=== PATIENT | female | born 1970 | race Caucasian/White ===

== ENCOUNTER 2022-01-05 07:52 | Emergency (ER) | payer BC ==
[2022-01-05] VITALS (11 sets, daily range): BP systolic 116–142; BP diastolic 76–97
[~2022-01-05] VITALS: Ht 170.2 cm; Wt 80.9 kg
[~2022-01-05 07:52] MED LIST: ACETIC ACID2 % AD; ATIVAN0.5 MG PO; ATIVAN1 M1 PO; AUGMENTIN875TAB OR; AUGMENTIN875TAB PO; B12 LIQUID PO; BIOTIN1000 MCG PO; D3400 UNIT OR; FLONASE NASAL50 MCG; MINIVELLE EX; MINIVELLE TD; MOTRIN800 MG PO; MULTIVITAMI3 PO; NAPROSYN500 MG PO; NASONEX50 MCG/AC; PANTOPRAZOLE SO40 MG PO; ROPINIROLE2 MG OR; SINGULAIR10 MG PO; TAM75CAP PO; VITAMIN B-122500 MCG SL; VITAMIN D31000 UNI1 PO; XANAX0.25 MG PO; ZYRTEC ALLERGY10 MG PO; ZYRTEC-D ALG PO; ZYRTEC10 M5 PO; [UNRECOGNIZED DRUG - CODE] IM; [UNRECOGNIZED DRUG - OTHER]
[2022-01-05 08:15] LABS: HEMATOCRIT 40.8 % (37.0-47.0); HEMOGLOBIN 13.3 g/dl (12.0-16.0); IMMATURE GRANULOCYTES 0.1 % (0.0-5.0); MEAN CELL VOLUME 94.7 fL CALC (80.0-100.0); MEAN CORPUSCULAR HGB 30.9 pG CALC (26.0-32.0); MEAN CORPUSCULAR HGB CONC 32.6 g/dL CAL (32.0-36.0); NEUT# 5.29 thou/uL (2.00-7.15); RED BLOOD COUNT 4.31 mill/uL (4.20-5.60); RED CELL DISTRI WIDTH 12.5 % (11.5-15.5)
[2022-01-05 08:30] LABS: ALBUMIN 4.1 g/dL (3.2-5.0); ALKALINE PHOSPHATASE 48 u/l (38-126); ANION GAP 13 (6-22 (CALC)); BUN 16 mg/dL (7-17); BUN/CREATININE RATIO 21 (12-20 (CALC)); CARBON DIOXIDE 22 mmol/l (22-30); CHLORIDE 108 mmol/l (95-108); CREATININE 0.7 mg/dL (0.5-1.0); GFR FOR AFR.AMER. > 60 ML/MIN (>=60 (CALC)); GFR OTHER RACES > 60 ML/MIN (>=60 (CALC)); POTASSIUM 3.9 mmol/l (3.5-5.1); SGOT/AST 17 u/l (14-36); SODIUM 139 mmol/l (137-146); TOTAL PROTEIN 7.2 g/dL (6.3-8.2)
[2022-01-05 08:35] LABS: BILIRUBIN, TOTAL 0.3 mg/dL (0.0-1.4)
== END 2022-01-05 13:19 | disposition home or self-care (01) | DRG 313 ==
LOC: ED 07:52
PROVIDERS: Family Medicine
DX: R07.9 Chest pain, unspecified (principal); I10 Essential (primary) hypertension; E78.5 Hyperlipidemia, unspecified; K21.9 Gastro-esophageal reflux disease without esophagitis

== ENCOUNTER 2022-02-26 02:29 | Emergency (ER) | payer BC ==
[~2022-02-26] VITALS: Ht 170.2 cm; Wt 76.0 kg
[2022-02-26 02:38] VITALS: BP 141/79
[2022-02-26 02:45] VITALS: BP 115/82
[2022-02-26] MEDS ORDERED: NITROSTAT0.4 MG SL (02:49)
[2022-02-26] MEDS ORDERED: ELIQUIS STARTER5 MG PO (02:50)
[2022-02-26] MEDS ORDERED: ASPIRIN81 MG PO (02:51)
[2022-02-26] MEDS ORDERED: CRESTOR5 MG PO (02:52)
[2022-02-26] MEDS ORDERED: METOPROLOL SUCC50 MG PO (02:53)
[2022-02-26 03:00] VITALS: BP 110/70
== END 2022-02-26 03:07 | disposition home or self-care (01) | DRG 558 ==
LOC: ED 02:29
DX: M76.892 Other specified enthesopathies of left lower limb, excluding foot (principal); E78.5 Hyperlipidemia, unspecified; Z86.711 Personal history of pulmonary embolism

== ENCOUNTER 2022-03-30 18:52 | Observation (INO) | payer BC ==
[~2022-03-30] VITALS: Ht 170.2 cm; Wt 71.8 kg
[2022-03-30] VITALS (15 sets, daily range): BP systolic 105–126; BP diastolic 69–80
[~2022-03-30 18:52] MED LIST changes: +ASPIRIN81 MG PO; +CRESTOR5 MG PO; +ELIQUIS STARTER5 MG PO; +METOPROLOL SUCC50 MG PO; +NITROSTAT0.4 MG SL
[2022-03-30 19:23] LABS: HEMATOCRIT 36.9 % (37.0-47.0); HEMOGLOBIN 12.5 g/dl (12.0-16.0); IMMATURE GRANULOCYTES 0.2 % (0.0-5.0); MEAN CELL VOLUME 89.8 fL CALC (80.0-100.0); MEAN CORPUSCULAR HGB 30.4 pG CALC (26.0-32.0); MEAN CORPUSCULAR HGB CONC 33.9 g/dL CAL (32.0-36.0); NEUT# 3.71 thou/uL (2.00-7.15); RED BLOOD COUNT 4.11 mill/uL (4.20-5.60); RED CELL DISTRI WIDTH 12.9 % (11.5-15.5)
[2022-03-30 19:36] LABS: ALBUMIN 4.2 g/dL (3.2-5.0); ALKALINE PHOSPHATASE 46 u/l (38-126); ANION GAP 14 (6-22 (CALC)); BUN 7 mg/dL (7-17); BUN/CREATININE RATIO 13 (12-20 (CALC)); CARBON DIOXIDE 23 mmol/l (22-30); CHLORIDE 108 mmol/l (95-108); CREATININE 0.5 mg/dL (0.5-1.0); GFR FOR AFR.AMER. > 60 ML/MIN (>=60 (CALC)); GFR OTHER RACES > 60 ML/MIN (>=60 (CALC)); POTASSIUM 3.7 mmol/l (3.5-5.1); SGOT/AST 21 u/l (14-36); SODIUM 142 mmol/l (137-146); TOTAL PROTEIN 7.5 g/dL (6.3-8.2)
[2022-03-30 19:41] LABS: BILIRUBIN, TOTAL 0.6 mg/dL (0.0-1.4)
[2022-03-30 19:48] LABS: MYOGLOBIN 16 ng/mL (0 - 62)
[2022-03-30] MEDS ORDERED: ZOLOFT50 MG PO (22:31)
[2022-03-30] MEDS ORDERED: TOPROL XL25 MG PO (22:41)
[2022-03-31 03:41] VITALS: BP 96/62
[2022-03-31 04:17] LABS: HEMATOCRIT 34.2 % (37.0-47.0); HEMOGLOBIN 11.5 g/dl (12.0-16.0); IMMATURE GRANULOCYTES 0.7 % (0.0-5.0); MEAN CELL VOLUME 91.9 fL CALC (80.0-100.0); MEAN CORPUSCULAR HGB 30.9 pG CALC (26.0-32.0); MEAN CORPUSCULAR HGB CONC 33.6 g/dL CAL (32.0-36.0); NEUT# 2.96 thou/uL (2.00-7.15); RED BLOOD COUNT 3.72 mill/uL (4.20-5.60)
[2022-03-31 04:23] LABS: ALBUMIN 3.6 g/dL (3.2-5.0); ALKALINE PHOSPHATASE 40 u/l (38-126); ANION GAP 11 (6-22 (CALC)); BILIRUBIN, TOTAL 0.7 mg/dL (0.0-1.4); BUN 6 mg/dL (7-17); BUN/CREATININE RATIO 11 (12-20 (CALC)); CARBON DIOXIDE 24 mmol/l (22-30); CHLORIDE 111 mmol/l (95-108); CREATININE 0.6 mg/dL (0.5-1.0); GFR FOR AFR.AMER. > 60 ML/MIN (>=60 (CALC)); GFR OTHER RACES > 60 ML/MIN (>=60 (CALC)); POTASSIUM 3.9 mmol/l (3.5-5.1); SGOT/AST 17 u/l (14-36); SODIUM 142 mmol/l (137-146); TOTAL PROTEIN 6.2 g/dL (6.3-8.2)
[2022-03-31 07:00] VITALS: BP 104/68
[2022-03-31 08:37] VITALS: BP 113/67
[2022-03-31 10:49] VITALS: BP 104/67
[2022-03-31 11:08] VITALS: BP 104/67
[2022-03-31] MEDS ORDERED: LIDOCAINE PAIN RE4 % TD ×2 (11:35→14:37)
[2022-03-31 14:47] VITALS: BP 108/68
== END 2022-03-31 13:34 | disposition home or self-care (01) | DRG 313 ==
LOC: ED 18:52 → ED-I 21:35 → ED 21:40 → MS2 21:41
PROVIDERS: Emergency Medicine; Nurse Practitioner; ADMIT Internal Medicine; ATTEND Internal Medicine
DX: R07.89 Other chest pain (principal); M62.838 Other muscle spasm; F41.9 Anxiety disorder, unspecified; I25.10 Atherosclerotic heart disease of native coronary artery without angina pectoris; I10 Essential (primary) hypertension; E78.5 Hyperlipidemia, unspecified; Z86.711 Personal history of pulmonary embolism; Z79.01 Long term (current) use of anticoagulants; Z20.822 Contact with and (suspected) exposure to COVID-19
CPT/HCPCS: G0378; Q9967

== ENCOUNTER 2022-05-04 17:59 | Observation (INO) | payer BC ==
[~2022-05-04] VITALS: Ht 170.2 cm; Wt 65.9 kg
[2022-05-04] VITALS (10 sets, daily range): BP systolic 112–129; BP diastolic 68–86
[~2022-05-04 17:59] MED LIST changes: +LIDOCAINE PAIN RE4 % TD; +TOPROL XL25 MG PO; +ZOLOFT50 MG PO
--- NOTE | 2022-05-04 18:02 | NUR ---
PT TO ROOM VIA WC; DR GAINES AT BEDSIDE FOR EVALUATION
[2022-05-04 18:20] LABS: HEMATOCRIT 38.4 % (37.0-47.0); HEMOGLOBIN 12.8 g/dl (12.0-16.0); IMMATURE GRANULOCYTES 0.1 % (0.0-5.0); MEAN CORPUSCULAR HGB CONC 33.3 g/dL CAL (32.0-36.0); NEUT# 4.61 thou/uL (2.00-7.15); RED BLOOD COUNT 4.13 mill/uL (4.20-5.60); RED CELL DISTRI WIDTH 13.1 % (11.5-15.5)
[2022-05-04 18:37] LABS: ALBUMIN 4.7 g/dL (3.2-5.0); ALKALINE PHOSPHATASE 50 u/l (38-126); ANION GAP 16 (6-22 (CALC)); BILIRUBIN, TOTAL 0.7 mg/dL (0.0-1.4); BUN 9 mg/dL (7-17); BUN/CREATININE RATIO 16 (12-20 (CALC)); CARBON DIOXIDE 21 mmol/l (22-30); CHLORIDE 109 mmol/l (95-108); CREATININE 0.6 mg/dL (0.5-1.0); GFR FOR AFR.AMER. > 60 ML/MIN (>=60 (CALC)); GFR OTHER RACES > 60 ML/MIN (>=60 (CALC)); SGOT/AST 17 u/l (14-36); SODIUM 142 mmol/l (137-146); TOTAL PROTEIN 7.7 g/dL (6.3-8.2)
[2022-05-04 18:38] LABS: INTERNATIONAL NORMALIZED RATIO 1.1 RATIO (0.7-1.3); PROTHROMBIN TIME 10.5 SECONDS (9.0-12.5)
--- NOTE | 2022-05-04 20:35 | NUR ---
PT TRANSPORTED TO CT
[2022-05-04 21:08] LABS: URINE BILIRUBIN - DIPSTICK NEGATIVE (NEGATIVE); URINE BLOOD DIPSTICK NEGATIVE (NEGATIVE); URINE COLOR YELLOW; URINE GLUCOSE - DIPSTICK NEGATIVE (NEGATIVE); URINE KETONE 40 mg/dL (NEGATIVE); URINE LEUK ESTERASE NEGATIVE (NEGATIVE); URINE NITRITE - DIPSTICK NEGATIVE (Negative); URINE PROTEIN - DIPSTICK NEGATIVE (NEG-TRACE); URINE UROBILINOGEN - DIPSTICK 0.2 E.U./dL (0.2)
[2022-05-04] MEDS ORDERED: CARAFATE1 GM PO (21:14)
[2022-05-04] MEDS ORDERED: FLEXERIL5 M1 PO (21:15)
[2022-05-04] MEDS ORDERED: ZOFRAN4 MG/TAB PO (21:15)
[2022-05-04] MEDS ORDERED: NIFEDIPINE60 MG PO (21:15)
[2022-05-04] MEDS ORDERED: ATORVASTATIN CA80 MG PO (21:16)
--- NOTE | 2022-05-04 22:02 | NUR ---
PT ADMITTED TO RM 263; REPORT HANDED OFF TO RM MORENO
--- NOTE | 2022-05-05 02:11 | NUR ---
PATIENT RECEIVED FROM ER INTO ROOM 263. AWAKE, ALERT, AND ORIENTED X 4. REPORTS ANXIETY AND MUCH STRESS AT HOME. ATIVAN INCLUDED IN 2100 MEDS ORDERED. PATIENT ORIENTED TO ROOM AND USE OF CALL LIGHT FOR ASSIST AND PLACED WITHIN REACH.
[2022-05-05 03:45] VITALS: BP 114/71
[2022-05-05 05:32] LABS: CHOLESTEROL HDL RATIO 2.7 (<4.4 (CALC))
[2022-05-05 06:28] LABS: ANION GAP 14 (6-22 (CALC)); BUN 7 mg/dL (7-17); BUN/CREATININE RATIO 13 (12-20 (CALC)); CARBON DIOXIDE 20 mmol/l (22-30); CHLORIDE 111 mmol/l (95-108); CREATININE 0.6 mg/dL (0.5-1.0); GFR FOR AFR.AMER. > 60 ML/MIN (>=60 (CALC)); GFR OTHER RACES > 60 ML/MIN (>=60 (CALC)); POTASSIUM 3.6 mmol/l (3.5-5.1); SODIUM 141 mmol/l (137-146)
== END 2022-05-05 15:39 | disposition home or self-care (01) | DRG 884 ==
LOC: ED 17:59 → ED-I 20:15 → ED 20:29 → MS2 20:29
PROVIDERS: Family Medicine; Nurse Practitioner; ADMIT Internal Medicine; ATTEND Internal Medicine
DX: F06.4 Anxiety disorder due to known physiological condition (principal); R25.3 Fasciculation; I10 Essential (primary) hypertension; I25.10 Atherosclerotic heart disease of native coronary artery without angina pectoris; E78.5 Hyperlipidemia, unspecified; K76.0 Fatty (change of) liver, not elsewhere classified; K44.9 Diaphragmatic hernia without obstruction or gangrene; Z86.711 Personal history of pulmonary embolism; Z77.120 Contact with and (suspected) exposure to mold (toxic); Z79.01 Long term (current) use of anticoagulants; Z20.822 Contact with and (suspected) exposure to COVID-19
CPT/HCPCS: G0378; Q3014; Q9967

== ENCOUNTER 2022-05-19 16:12 | Emergency (ER) | payer BC ==
[2022-05-19] VITALS (19 sets, daily range): BP systolic 110–145; BP diastolic 68–101
[~2022-05-19] VITALS: Ht 170.2 cm; Wt 70.9 kg
[~2022-05-19 16:12] MED LIST changes: +ATORVASTATIN CA80 MG PO; +CARAFATE1 GM PO; +FLEXERIL5 M1 PO; +NIFEDIPINE60 MG PO; +ZOFRAN4 MG/TAB PO
[2022-05-19 16:39] LABS: HEMATOCRIT 39.9 % (37.0-47.0); HEMOGLOBIN 13.1 g/dl (12.0-16.0); IMMATURE GRANULOCYTES 0.2 % (0.0-5.0); MEAN CORPUSCULAR HGB 30.5 pG CALC (26.0-32.0); MEAN CORPUSCULAR HGB CONC 32.8 g/dL CAL (32.0-36.0); NEUT# 8.03 thou/uL (2.00-7.15); RED BLOOD COUNT 4.29 mill/uL (4.20-5.60)
[2022-05-19 16:50] LABS: ALBUMIN 4.4 g/dL (3.2-5.0); ALKALINE PHOSPHATASE 51 u/l (38-126); ANION GAP 15 (6-22 (CALC)); BILIRUBIN, TOTAL 0.6 mg/dL (0.0-1.4); BUN 10 mg/dL (7-17); BUN/CREATININE RATIO 15 (12-20 (CALC)); CARBON DIOXIDE 21 mmol/l (22-30); CHLORIDE 108 mmol/l (95-108); CREATININE 0.6 mg/dL (0.5-1.0); GFR FOR AFR.AMER. > 60 ML/MIN (>=60 (CALC)); GFR OTHER RACES > 60 ML/MIN (>=60 (CALC)); POTASSIUM 3.7 mmol/l (3.5-5.1); SGOT/AST 17 u/l (14-36); SODIUM 140 mmol/l (137-146); TOTAL PROTEIN 7.4 g/dL (6.3-8.2)
[2022-05-19 19:11] LABS: INTERNATIONAL NORMALIZED RATIO 1.1 RATIO (0.7-1.3)
[2022-05-19] MEDS ORDERED: XANAX0.25 MG PO (20:03)
== END 2022-05-19 20:48 | disposition home or self-care (01) | DRG 310 ==
LOC: ED 16:12
PROVIDERS: Family Medicine; Nurse Practitioner
DX: R00.2 Palpitations (principal); F41.9 Anxiety disorder, unspecified

== ENCOUNTER 2022-06-02 15:28 | Emergency (ER) | payer BC ==
[2022-06-02] VITALS (19 sets, daily range): BP systolic 99–127; BP diastolic 67–85
[~2022-06-02] VITALS: Ht 170.2 cm; Wt 70.0 kg
[2022-06-02 15:56] LABS: HEMATOCRIT 40.1 % (37.0-47.0); IMMATURE GRANULOCYTES 0.3 % (0.0-5.0); MEAN CELL VOLUME 92.4 fL CALC (80.0-100.0); MEAN CORPUSCULAR HGB CONC 32.4 g/dL CAL (32.0-36.0); NEUT# 2.4 thou/uL (2.00-7.15); RED BLOOD COUNT 4.34 mill/uL (4.20-5.60)
[2022-06-02 16:11] LABS: ALBUMIN 4.3 g/dL (3.2-5.0); ALKALINE PHOSPHATASE 45 u/l (38-126); ANION GAP 12 (6-22 (CALC)); BILIRUBIN, TOTAL 0.8 mg/dL (0.0-1.4); BUN 6 mg/dL (7-17); BUN/CREATININE RATIO 10 (12-20 (CALC)); CARBON DIOXIDE 25 mmol/l (22-30); CHLORIDE 105 mmol/l (95-108); CREATININE 0.7 mg/dL (0.5-1.0); GFR FOR AFR.AMER. > 60 ML/MIN (>=60 (CALC)); GFR OTHER RACES > 60 ML/MIN (>=60 (CALC)); POTASSIUM 3.9 mmol/l (3.5-5.1); SGOT/AST 18 u/l (14-36); SODIUM 137 mmol/l (137-146); TOTAL PROTEIN 7.2 g/dL (6.3-8.2)
== END 2022-06-02 20:11 | disposition home or self-care (01) | DRG 313 ==
LOC: ED 15:28
PROVIDERS: Nurse Practitioner
DX: R07.89 Other chest pain (principal); F32.9 Major depressive disorder, single episode, unspecified; F41.9 Anxiety disorder, unspecified

== ENCOUNTER 2022-07-30 07:41 | Emergency (ER) | payer BC ==
[~2022-07-30] VITALS: Ht 170.2 cm; Wt 68.0 kg
[2022-07-30] VITALS (10 sets, daily range): BP systolic 110–140; BP diastolic 56–88
[2022-07-30 08:31] LABS: BASO% 0.3 % (0-3); EOS% 1.1 % (0-8); HEMATOCRIT 38.4 % (37.0-47.0); HEMOGLOBIN 12.8 g/dl (12.0-16.0); IMMATURE GRANULOCYTES 0.3 % (0.0-5.0); LYMPH% 29.7 % (15-41); MEAN CELL VOLUME 92.8 fL CALC (80.0-100.0); MEAN CORPUSCULAR HGB 30.9 pG CALC (26.0-32.0); MEAN CORPUSCULAR HGB CONC 33.3 g/dL CAL (32.0-36.0); NEUT# 4.06 thou/uL (2.00-7.15); NEUT% 61.6 % (42-76); RED BLOOD COUNT 4.14 mill/uL (4.20-5.60)
[2022-07-30 08:50] LABS: ALKALINE PHOSPHATASE 48 u/l (38-126); ANION GAP 8 (6-22 (CALC)); BUN 11 mg/dL (7-17); BUN/CREATININE RATIO 19 (12-20 (CALC)); CARBON DIOXIDE 26 mmol/l (22-30); CHLORIDE 109 mmol/l (95-108); CREATININE 0.6 mg/dL (0.5-1.0); GFR FOR AFR.AMER. > 60 ML/MIN (>=60 (CALC)); GFR OTHER RACES > 60 ML/MIN (>=60 (CALC)); SGOT/AST 16 u/l (14-36); SODIUM 139 mmol/l (137-146); TOTAL PROTEIN 6.8 g/dL (6.3-8.2)
[2022-07-30 08:54] LABS: BILIRUBIN, TOTAL 0.4 mg/dL (0.0-1.4)
[2022-07-30 09:21] LABS: TSH, 3RD GENERATION 1.52 uIU/mL (0.47 - 4.68)
== END 2022-07-30 10:10 | disposition home or self-care (01) | DRG 310 ==
LOC: ED 07:41
PROVIDERS: Family Medicine
DX: R00.0 Tachycardia, unspecified (principal)

== ENCOUNTER 2022-08-01 17:12 | Emergency (ER) | payer BC ==
[2022-08-01] VITALS (12 sets, daily range): BP systolic 114–138; BP diastolic 82–90
[~2022-08-01] VITALS: Ht 170.2 cm; Wt 71.0 kg
[2022-08-01] MEDS ORDERED: TOPROL XL25 M1 PO (17:29)
[2022-08-01 19:29] LABS: BASO% 0.1 % (0-3); EOS% 0.6 % (0-8); HEMATOCRIT 39.5 % (37.0-47.0); HEMOGLOBIN 13.4 g/dl (12.0-16.0); IMMATURE GRANULOCYTES 0.3 % (0.0-5.0); LYMPH% 22.7 % (15-41); MEAN CELL VOLUME 91.2 fL CALC (80.0-100.0); MEAN CORPUSCULAR HGB 30.9 pG CALC (26.0-32.0); MEAN CORPUSCULAR HGB CONC 33.9 g/dL CAL (32.0-36.0); MONO% 9.6 % (2-13); NEUT# 5.33 thou/uL (2.00-7.15); NEUT% 66.7 % (42-76); RED BLOOD COUNT 4.33 mill/uL (4.20-5.60); RED CELL DISTRI WIDTH 13.1 % (11.5-15.5)
[2022-08-01 19:41] LABS: ALBUMIN 4.5 g/dL (3.2-5.0); ALKALINE PHOSPHATASE 50 u/l (38-126); ANION GAP 14 (6-22 (CALC)); BILIRUBIN, TOTAL 0.5 mg/dL (0.0-1.4); BUN 13 mg/dL (7-17); BUN/CREATININE RATIO 23 (12-20 (CALC)); CARBON DIOXIDE 27 mmol/l (22-30); CHLORIDE 107 mmol/l (95-108); CREATININE 0.6 mg/dL (0.5-1.0); GFR FOR AFR.AMER. > 60 ML/MIN (>=60 (CALC)); GFR OTHER RACES > 60 ML/MIN (>=60 (CALC)); SGOT/AST 23 u/l (14-36); SODIUM 143 mmol/l (137-146); TOTAL PROTEIN 7.7 g/dL (6.3-8.2)
[2022-08-01 21:50] LABS: URINE BILIRUBIN - DIPSTICK NEGATIVE (NEGATIVE); URINE BLOOD DIPSTICK NEGATIVE (NEGATIVE); URINE COLOR YELLOW; URINE GLUCOSE - DIPSTICK NEGATIVE (NEGATIVE); URINE KETONE 15 mg/dL (NEGATIVE); URINE LEUK ESTERASE NEGATIVE (NEGATIVE); URINE PROTEIN - DIPSTICK NEGATIVE (NEG-TRACE)
[2022-08-01 21:52] LABS: URINE NITRITE - DIPSTICK NEGATIVE (Negative)
== END 2022-08-01 22:32 | disposition home or self-care (01) | DRG 310 ==
LOC: ED 17:12
PROVIDERS: Emergency Medicine
DX: R00.2 Palpitations (principal)

== ENCOUNTER 2022-08-09 12:53 | Emergency (ER) | payer BC ==
[2022-08-09] VITALS (9 sets, daily range): BP systolic 114–141; BP diastolic 73–88
[~2022-08-09] VITALS: Ht 170.2 cm; Wt 80.0 kg
[~2022-08-09 12:53] MED LIST changes: +TOPROL XL25 M1 PO
[2022-08-09 13:37] LABS: BASO% 0.2 % (0-3); EOS% 0.7 % (0-8); HEMATOCRIT 38.4 % (37.0-47.0); LYMPH% 17.3 % (15-41); MEAN CELL VOLUME 92.1 fL CALC (80.0-100.0); MEAN CORPUSCULAR HGB 31.2 pG CALC (26.0-32.0); MEAN CORPUSCULAR HGB CONC 33.9 g/dL CAL (32.0-36.0); MONO% 8.7 % (2-13); NEUT# 4.45 thou/uL (2.00-7.15); NEUT% 73.1 % (42-76); RED BLOOD COUNT 4.17 mill/uL (4.20-5.60); RED CELL DISTRI WIDTH 13.2 % (11.5-15.5)
[2022-08-09 13:55] LABS: ALBUMIN 4.3 g/dL (3.2-5.0); ALKALINE PHOSPHATASE 43 u/l (38-126); ANION GAP 9 (6-22 (CALC)); BILIRUBIN, TOTAL 0.5 mg/dL (0.0-1.4); BUN 10 mg/dL (7-17); BUN/CREATININE RATIO 18 (12-20 (CALC)); CARBON DIOXIDE 26 mmol/l (22-30); CHLORIDE 107 mmol/l (95-108); CREATININE 0.6 mg/dL (0.5-1.0); GFR FOR AFR.AMER. > 60 ML/MIN (>=60 (CALC)); GFR OTHER RACES > 60 ML/MIN (>=60 (CALC)); POTASSIUM 3.6 mmol/l (3.5-5.1); SGOT/AST 16 u/l (14-36); SODIUM 139 mmol/l (137-146); TOTAL PROTEIN 7.3 g/dL (6.3-8.2)
== END 2022-08-09 15:01 | disposition home or self-care (01) | DRG 313 ==
LOC: ED 12:53
PROVIDERS: Family Medicine
DX: R07.9 Chest pain, unspecified (principal); F41.9 Anxiety disorder, unspecified; Z86.711 Personal history of pulmonary embolism

== ENCOUNTER 2022-08-22 05:42 | Emergency (ER) | payer BC ==
[~2022-08-22] VITALS: Ht 167.6 cm; Wt 68.0 kg
[2022-08-22 07:05] LABS: BASO% 0.2 % (0-3); HEMATOCRIT 39.7 % (37.0-47.0); IMMATURE GRANULOCYTES 0.2 % (0.0-5.0); LYMPH% 7.6 % (15-41); MEAN CELL VOLUME 91.9 fL CALC (80.0-100.0); MEAN CORPUSCULAR HGB 30.1 pG CALC (26.0-32.0); MEAN CORPUSCULAR HGB CONC 32.7 g/dL CAL (32.0-36.0); MONO% 6.5 % (2-13); NEUT# 5.64 thou/uL (2.00-7.15); NEUT% 85.5 % (42-76); RED BLOOD COUNT 4.32 mill/uL (4.20-5.60); RED CELL DISTRI WIDTH 13.2 % (11.5-15.5)
[2022-08-22 07:27] LABS: ALBUMIN 4.4 g/dL (3.2-5.0); ALKALINE PHOSPHATASE 50 u/l (38-126); ANION GAP 9 (6-22 (CALC)); BUN 12 mg/dL (7-17); BUN/CREATININE RATIO 21 (12-20 (CALC)); CARBON DIOXIDE 26 mmol/l (22-30); CHLORIDE 107 mmol/l (95-108); CREATININE 0.6 mg/dL (0.5-1.0); GFR FOR AFR.AMER. > 60 ML/MIN (>=60 (CALC)); GFR OTHER RACES > 60 ML/MIN (>=60 (CALC)); LIPASE 81 u/l (23-300); POTASSIUM 3.9 mmol/l (3.5-5.1); SGOT/AST 18 u/l (14-36); SODIUM 137 mmol/l (137-146); TOTAL PROTEIN 7.4 g/dL (6.3-8.2)
[2022-08-22 07:28] LABS: BILIRUBIN, TOTAL 0.9 mg/dL (0.0-1.4)
[2022-08-22 07:45] LABS: URINE BILIRUBIN - DIPSTICK NEGATIVE (NEGATIVE); URINE BLOOD DIPSTICK NEGATIVE (NEGATIVE); URINE COLOR YELLOW; URINE GLUCOSE - DIPSTICK NEGATIVE (NEGATIVE); URINE KETONE NEGATIVE (NEGATIVE); URINE LEUK ESTERASE NEGATIVE (NEGATIVE); URINE PROTEIN - DIPSTICK NEGATIVE (NEG-TRACE); URINE SPECIFIC GRAVITY <=1.005; URINE UROBILINOGEN - DIPSTICK 0.2 E.U./dL (0.2)
[2022-08-22 07:46] LABS: URINE NITRITE - DIPSTICK NEGATIVE (Negative)
[2022-08-22 07:58] VITALS: BP 113/81
== END 2022-08-22 08:15 | disposition home or self-care (01) | DRG 552 ==
LOC: ED 05:42
PROVIDERS: Internal Medicine
DX: M54.9 Dorsalgia, unspecified (principal)

== ENCOUNTER 2023-02-02 08:57 | Emergency (ER) | payer BC ==
[~2023-02-02] VITALS: Ht 167.6 cm; Wt 80.0 kg
[2023-02-02] MEDS ORDERED: ALL DAY10 MG PO (09:11)
[2023-02-02] MEDS ORDERED: PREDNISONE50 MG PO (09:11)
[2023-02-02] MEDS ORDERED: OMNI-PAC300 MG PO (09:11)
[2023-02-02 09:37] VITALS: BP 155/87
== END 2023-02-02 09:38 | disposition home or self-care (01) | DRG 918 ==
LOC: ED 08:57
DX: T63.461A Toxic effect of venom of wasps, accidental (unintentional), initial encounter (principal); M79.89 Other specified soft tissue disorders; L53.9 Erythematous condition, unspecified; F41.9 Anxiety disorder, unspecified

== ENCOUNTER 2024-03-11 15:15 | Emergency (ER) | payer BC ==
[~2024-03-11] VITALS: Ht 167.6 cm; Wt 88.4 kg
[~2024-03-11 15:15] MED LIST changes: +ALL DAY10 MG PO; +OMNI-PAC300 MG PO; +PREDNISONE50 MG PO
[2024-03-11 15:21] VITALS: BP 153/92
[2024-03-11 15:24] VITALS: BP 153/92
[2024-03-11 15:45] LABS: BASO% 0.3 % (0-3); EOS% 1.4 % (0-8); HEMATOCRIT 39.5 % (37.0-47.0); IMMATURE GRANULOCYTES 0.1 % (0.0-5.0); LYMPH% 24.7 % (15-41); MEAN CELL VOLUME 92.5 fL CALC (80.0-100.0); MEAN CORPUSCULAR HGB 30.4 pG CALC (26.0-32.0); MEAN CORPUSCULAR HGB CONC 32.9 g/dL CAL (32.0-36.0); MONO% 7.2 % (2-13); NEUT# 4.67 thou/uL (2.00-7.15); NEUT% 66.3 % (42-76); RED BLOOD COUNT 4.27 mill/uL (4.20-5.60); RED CELL DISTRI WIDTH 12.8 % (11.5-15.5)
[2024-03-11 16:03] LABS: ALBUMIN 4.2 g/dL (3.2-5.0); CREATININE 0.7 mg/dL (0.5-1.0); POTASSIUM 3.9 mmol/l (3.5-5.1); TOTAL PROTEIN 7.4 g/dL (6.3-8.2)
[2024-03-11 16:04] LABS: BILIRUBIN, TOTAL 0.5 mg/dL (0.02-1.3)
[2024-03-11] MEDS ORDERED: DICLOFENAC SODIUM2 % TD (16:52)
== END 2024-03-11 17:13 | disposition home or self-care (01) | DRG 563 ==
LOC: ED 15:15
PROVIDERS: Nurse Practitioner
DX: M23.92 Unspecified internal derangement of left knee (principal)